=== PATIENT | male | born 1960 | race American Indian/Alaskan Native ===

== ENCOUNTER 2018-01-06 08:10 | Day surgery (SDC) | payer BC ==
[~2018-01-06 08:10] MED LIST: ANCEF/STERILE WATER 2 GM/20 ML 2 GM/20 ML SYRINGE IV NR; NACL 0.9% 1000 ML 1,000 ML IV SCH
[2018-01-06 09:38] LABS: INR 0.96 (0.87-1.13); Partial Thromboplastin Time 26.9 Sec. (24.2-36.6)
[2018-01-06 10:43] LABS: Basophils % (Auto) 0.9 % (0.0-1.8); Eosinophils # (Auto) 0.1 K/mm3 (0.0-0.4); Eosinophils % (Auto) 1.9 % (0.0-4.3); Hematocrit 44.5 % (35.5-45.6); Hemoglobin 14.9 gm/dl (11.8-15.2); Lymphocytes # (Auto) 0.8 K/mm3 (1.2-5.4); Lymphocytes % (Auto) 14.2 % (13.4-35.0); Mean Corpuscular HGB Conc 34 % (32-34); Mean Corpuscular Hemoglobin 29 pg (28-32); Mean Corpuscular Volume 87 fl (84-94); Monocytes # (Auto) 0.4 K/mm3 (0.0-0.8); Platelet Count 148 K/mm3 (140-440); Red Cell Distribution Width 15.8 % (13.2-15.2)
[2018-01-06 10:55] LABS: BUN/Creatinine Ratio 11; Blood Urea Nitrogen 12 mg/dL (9-20); Calcium 9.5 mg/dL (8.4-10.2); Hemolysis Index 5
[2018-01-06] MEDS ORDERED: HEPARIN/NS 5000 UNIT/500ML(CATH LAB) 1,000 ML IR ONE (11:09)
[2018-01-06] MEDS ORDERED: HEPARIN 10,000 UNITS/10 ML ONE (11:09)
[2018-01-06] MEDS: SUBLIMAZE ONE ×2 (11:32→11:56)
[2018-01-06] MEDS: VERSED ONE ×2 (11:32→11:56)
[2018-01-06] MEDS: XYLOCAINE 2% INFILTRATI ONE ×2 (11:33→11:35)
[2018-01-06] MEDS ORDERED: TORADOL ONE (11:55)
--- NOTE | 2018-01-06 12:28 | Short Stay Summary ---
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 H&P: obtained from office - Allergies and Medications Current Medications: Allergies No Known Allergies Allergy (Verified 01/06/18 09:03) Home Medications Medication Instructions Recorded Confirmed Last Taken Type Amlodipine Besylate/Benazepril 2 cap PO DAILY 01/06/18 01/06/18 01/05/18 History [Amlodipine-Benazepril 5-10 mg] 2 HYDROcodone/APAP 10-325 1 tab PO Q6HR PRN 01/06/18 01/06/18 01/05/18 History 1 RX: AtorvaSTATin [Lipitor] 20 mg PO QHS 01/06/18 01/06/18 01/05/18 History 20mg RX: Gabapentin [Neurontin] 300 mg PO DAILY PRN 01/06/18 01/06/18 12/16/17 History 300mg RX: traMADol [Ultram 50 MG tab] 50 mg PO Q6HR PRN 01/06/18 01/06/18 12/06/17 History 50mg Active Medications Cefazolin Sodium (Ancef/Sterile Water 2 Gm/20 Ml) 2 gm in 20 mls @ 80 mls/hr IV PREOP NR; Protocol Stop: 01/06/18 23:59 Sodium Chloride (Nacl 0.9% 1000 Ml) 1,000 mls @ 42 mls/hr IV DIRECT KEYANA Last Admin: 01/06/18 09:30 Dose: 42 mls/hr - Brief post op/procedure progress note Date of procedure: 01/06/18 Pre-op diagnosis: Venous hypertension from compression of vein Post-op diagnosis: same Procedure: BLE venogram, IVUS, Stents Anesthesia: local Surgeon: ESPERANZA POPE Estimated blood loss: minimal Pathology: none Condition: stable - Disposition Condition at discharge: Good Disposition: [id number] TO HOME OR SELFCARE Short Stay Discharge Plan Activity: advance as tolerated Weight Bearing Status: Weight Bear as Tolerated Diet: regular Wound: keep clean and dry, per your surgeon's advice Follow up with: ROSELYN LAMA MD [Primary Care Provider] - 7 Days
--- NOTE | 2018-01-06 12:33 | Operative Report ---
Operative Report Operative Report: Exam: Bilateral lower extremity venogram, intravascular ultrasound, venoplasty with stent placement Clinical indication: Patient with venous hypertension of his lower extremity secondary to extrinsic compression of veins Date: 01/06/2018 Procedure: Following an explanation of the risks, benefits and alternatives; written informed consent was obtained. The patient was brought to the angiographic suite and placed in supine position on the examination table. Initial ultrasound evaluation of his legs demonstrated patent [place] veins proximally. The patient's legs were prepped and draped in the usual sterile fashion. 1% lidocaine was used for anesthesia. Under ultrasound guidance, the right proximal femoral vein was cannulated with a 7 cm 18-gauge needle. A 0.035 guidewire was advanced centrally. The needle was removed and a 5 [place] sheath placed. Access to the left proximal femoral vein was obtained in a similar fashion and an additional 5 [place] sheath placed. Contrast was injected through the 5 [place] sheath on the left and demonstrated significant extrinsic compression of the left common iliac vein with prompt reflux into paraspinal collaterals as well as the internal iliac vein. A decision was made to further evaluate with intravascular ultrasound and both sheaths were upsized over the guidewires for 10 [place] sheaths. Intravascular ultrasound was performed first to the right sheath. Image vessels include the IVC, right common iliac vein, right external iliac vein and right common femoral vein. The IVC is widely patent. There is 20-30% stenosis involving the right common iliac vein. The right external iliac vein and right common femoral vein are patent. Intravascular ultrasound was then performed through the left sheath. Imaged vessels include the IVC, left common iliac vein , left external iliac vein and left common femoral vein. The IVC is again noted to be patent. There is 80-90% stenosis involving the origin of the left common iliac vein with prestenotic dilatation. The left external iliac vein the left common femoral vein are patent. A decision was made to treat this lesion with kissing stents. Following exchange of the guidewires for Amplatz superstiff guidewires bilaterally, an 18 x 90 mm Wallstent was advanced through the left sheath across the lesion and the common iliac vein. An 18 x 90 mm Wallstent was then advanced through the right sheath. The stents were then deployed in kissing fashion and seated using 16 mm balloons insufflated nominal atmospheres of multiple occasions a. Post stent deployment imaging demonstrated reduction of the stenosis to less than 10% bilaterally. At this point, the catheters, guidewires and sheaths were removed and hemostasis achieved using manual compression. Sterile compression dressings were then applied. The patient tolerated the procedure well. There were no immediate post procedure complications. Conscious sedation was performed under the guidance of radiologic nursing. Continuous cardiopulmonary monitoring was utilized. Impression: 1) Bilateral lower extremity venogram demonstrating significant compression of the left common iliac vein. 2) Intravascular ultrasound performed through the VC, right common iliac vein, right external iliac vein, right common femoral vein, left common iliac vein, left external iliac vein and left common femoral vein demonstrating 80-90% stenosis at the origin of the left common iliac vein and 20-30% stenosis involving the right common iliac vein. 3) Treatment of the left common iliac vein lesion using kissing stent technique as described with residual less than 10% stenosis.
[2018-01-06 13:31] VITALS: BP 131/89
== END 2018-01-06 13:50 | disposition home or self-care (01) ==
LOC: CATHLABREC 08:10
PROVIDERS: ATTEND Radiology Diagnostic Radiology
DX: I87.1 Compression of vein (principal); I87.393 Chronic venous hypertension (idiopathic) with other complications of bilateral lower extremity; I10 Essential (primary) hypertension; I73.9 Peripheral vascular disease, unspecified; E78.00 Pure hypercholesterolemia, unspecified; Z79.01 Long term (current) use of anticoagulants; Z79.899 Other long term (current) drug therapy; Z87.891 Personal history of nicotine dependence
CPT/HCPCS: 36415; 37238; 37239; 37252; 37253; 76937; 80048; 85025; 85610; 85730; 99156; 99157; C1725; C1751; C1753; C1769; C1876; C1894; J1644; J1885; J2250; J3010; J7030; Q9967